=== PATIENT | male | born 1985 | race Caucasian/White ===

== ENCOUNTER → 2019-06-14 | Day surgery (SDC) | payer OTHER ==
[~2019-06-14] MED LIST: BETAMETHASONE DISODIUM PHOS 6 MG/ML VIAL ONE; BUPIVACAINE HCL 0.5% INJ 30 ML VIAL INJ ONE; CEFTRIAXONE SOD 1 GM/NS 50 ML 50 ML IV ONE; FENTANYL CITRATE/PF 100MCG/2 ML INJ ONE; LIDOCAINE HCL 1% LOCAL INJ 20 ML VIAL ONE; LIDOCAINE HCL 2% LOCAL INJ 5 ML SDV VIAL INJ ONE; MIDAZOLAM HCL 2 MG/2 ML VIAL ONE; MUPIROCIN 2% OINT 22 GM TUBE ONE; PROPOFOL IV EMULSION 10 MG/ML 20 ML VIAL ONE
[2019-06-14 10:35] VITALS: BP 121/79
--- NOTE | 2019-06-28 17:44 | Operative Report ---
DATE OF PROCEDURE: 06/14/2019 SURGEON: Evans Yao MD PREOPERATIVE DIAGNOSIS: POSTOPERATIVE DIAGNOSIS: OPERATIVE PROCEDURE PERFORMED: Bilateral segmental vasectomy. ANESTHESIA: General anesthesia. ESTIMATED BLOOD LOSS: Minimal. INDICATIONS: Mr. Aaron is a 34-year-old gentleman, who has previously undergone a vasectomy, which was noted to be unsuccessful as he continued to have sperm in his semen analysis. He presents now for repeat vasectomy. PROCEDURE IN DETAIL: The patient was brought into the operating room and placed in the supine position. After administration of general anesthesia, he was prepped and draped in usual sterile fashion. A small incision was made over the right hemiscrotum and dissection was carried out through the hemiscrotum. The vas deferens on the right side was identified, dissected from its surrounding tissues and clipped proximally and distally. The intervening section was then cut and removed. The clipped ends were fulgurated with the electrocautery device and the vas was allowed to retract back into the scrotum. The skin was closed with a [id number] suture. A similar procedure was performed on the contralateral side. Again, the vas was identified from the surrounding structures, clipped and cut in the standard fashion. Again, the cut edges were fulgurated using electrocautery device. The vas was then again allowed to retract up into the scrotum and the skin closed with a [id number] chromic suture. The wounds were then cleaned and dried and covered with a sterile fluff and placed in a scrotal support. Anesthesia was reversed and the patient was transferred to a bed and taken to the postanesthesia care unit in good condition. Of note, the needle and instrument count were correct at the conclusion of the case. Evans Yao MD HLW/[id number] /[id number]
== END | disposition home or self-care (01) ==
LOC: OR 08:29
PROVIDERS: ATTEND Urology
DX: Z30.2 Encounter for sterilization (principal)
CPT/HCPCS: 55250; 88302; J0696; J2001; J2250; J2704; J3010; J0720